=== PATIENT | female | born 1960 | race American Indian/Alaskan Native ===

== ENCOUNTER 2022-04-06 16:35 | Emergency (ER) | payer MEDICAID ==
[~2022-04-06] VITALS: Ht 157.5 cm; Wt 85.0 kg
[2022-04-06 16:58] VITALS: BP 167/95
[2022-04-06] MEDS ORDERED: ondansetron 4mg rapidly disintigrating tab PO ONE (17:30)
[2022-04-06] MEDS ORDERED: ceFAZolin 1gm IM kit IM ONE (17:55)
--- NOTE | 2022-04-06 18:02 | NUR ---
lt index finger tip irr with nacl+betadine 1000ml pt tolerated procedure well with no complaints of discomfort. md at bedside
[2022-04-06] MEDS ORDERED: HYDR-3965 PO (18:36)
[2022-04-06] MEDS ORDERED: CEPH500C82 PO (18:36)
== END 2022-04-06 18:56 | disposition home or self-care (01) ==
LOC: ER 16:37
DX: S68.111A Complete traumatic metacarpophalangeal amputation of left index finger, initial encounter (principal); V49.3XXA Car occupant (driver) (passenger) injured in unspecified nontraffic accident, initial encounter; Y93.89 Activity, other specified; Y92.89 Other specified places as the place of occurrence of the external cause; Y99.8 Other external cause status
CPT/HCPCS: 12002; 73140; 96372; 99283; A6222; J0690; A6449